=== PATIENT | male | born 1955 | race Caucasian/White ===

== ENCOUNTER 2018-11-27 06:14 | Inpatient (IN) ==
--- NOTE | 2018-11-17 09:32 | Anesthesiology Consultation ---
Date of Service November 17, 2018 Assessment & Plan (1) Encounter for pre-operative examination: Plan: CHECK POTASSIUM STAT AM DOS. Chart Review Chart Review: Acceptable Risk for Surgery and Patient seen in Pre Admission Testing Teaching & Discussion Instructed NPO after midnight before surgery, except medications with 15 cc of water. Medication instructions provided according to the PAT guidelines. History Surgery Operation Date: 11/27/18 10:55 Proposed Procedures p Left Total Hip Arthroplasty - Suresh Leung MD Height/Weight Height: 5 ft 8 in Weight: 61.7 kg Allergies Allergy/AdvReac Type Severity Reaction Status Date / Time No Known Allergies Allergy Verified 11/11/18 15:32 Medications Home Medications Medication Instructions Recorded Confirmed Last Taken ibuprofen [Advil] 400 mg PO QID PRN 11/11/18 11/11/18 Unknown Past Medical History Medical History No known health problems Osteoarthritis Past Surgical History Surgical History No history of previous surgery Past Anesthesia History No Family Hx of Anesthesia Complications ANESTHESIA NAIVE Motion Sickness Screening History of Motion Sickness: No Social History Smoking Status: Current every day smoker tobacco type: cigarettes Smoking cigarettes per day: 1 PPD X 42 YRS AGO Do You Dip or Chew Tobacco: No Hx Alcohol Use: No Hx Substance Use: No Exercise / Class Metabolic Activity II 4-5 Yardwork/Stairs/Walk up hill (no CP or SOB with stairs) Review of Systems Pt denies any recent chest pain, shortness of breath, palpitations, cough, fever or URI. Physical Exam Vital Signs BP: 163/103 (pt is visibly anxious, has documented BP of 138/88 at PCP on 11/05/18 ) P: 79bpm SPO2: 98% RA T: 98.0 R: 16 ENMT Mouth: + dentures (full upper); no chipped teeth and no loose teeth Thyromental Distance: < 3.5 Finger Breadths (3) Mallampati Class: II Neck normal visual inspection and + facial hair (mustache); neck extension not limited Respiratory normal respiratory effort Auscultation: lungs clear to auscultation bilaterally Cardiovascular Rate/Rhythm: regular rate and regular rhythm Heart Sounds: no murmur Vessels: no carotid bruit Extremities: no edema Testing Electrocardiogram Date: 11/17/18 Findings: + NSR @ (65) Possible LAE. Nonspecific ST abnormality. Chest X-Ray Date: 11/17/18 Findings: + NAD Laboratory Results 11/17/18 09:59 11/17/18 09:59 Blood Type A Positive 11/17/18 09:59 Antibody Screen NEGATIVE 11/17/18 09:59 PT 10.7 Seconds (9.0-12.0) 11/17/18 09:59 INR 1.1 (0.9-1.1) 11/17/18 09:59 APTT 24.9 Seconds (21.0-31.0) 11/17/18 09:59 Hemoglobin A1c 6.1 % (4.5-5.6) H 11/17/18 09:59 Urine Color Yellow 11/17/18 09:59 Urine Appearance Clear (Clear) 11/17/18 09:59 Urine pH 7.0 (4.5-7.5) 11/17/18 09:59 Ur Specific Jeffers 1.012 (1.000-1.030) 11/17/18 09:59 Urine Protein Negative (Negative) 11/17/18 09:59 Urine Glucose (UA) Negative (Negative) 11/17/18 09:59 Urine Ketones Negative (Negative) 11/17/18 09:59 Urine Nitrite Negative (Negative) 11/17/18 09:59 Ur Leukocyte Esterase Negative (Negative) 11/17/18 09:59 11/17/18 09:59 Urine Culture - Preliminary Urine,Clean Catch No growth - Less than 1,000 colonies/mL, Final report to follow.
--- NOTE | 2018-11-17 09:46 | PAT Medication Instructions ---
Medication Instructions Date of Service November 17, 2018 Home Medications ibuprofen [Advil] 400 mg PO QID PRN ASK your surgeon for instructions ibuprofen [Advil] 400 mg PO QID PRN Other Notes If you have any questions please call us at [phone] or [phone] or [phone] or [phone]
--- NOTE | 2018-11-17 10:25 | XRay Report ---
XR chest Pre-admission PA/Lat CLINICAL HISTORY: Preoperative chest COMPARISON STUDY: No previous studies for comparison. FINDINGS: The cardiac and mediastinal contours are normal. There is no evidence of focal pulmonary co nsolidation. There is no evidence of failure. No pleural effusions are visualized.[ IMPRESSION: No active disease in the chest. Electronically signed by: Joel Jones M.D. 11/17/2018 10:23 AM
[2018-11-17 10:32] LABS: Basophils # (auto) 0.04 K/uL (0-0.2); Basophils % (auto) 0.7 %; Eosinophils # (auto) 0.16 K/uL (0-0.5); Eosinophils % (auto) 2.7 %; Hematocrit (blood only) 48.6 % (42-52); Hemoglobin 16.7 g/dL (14.0-18.0); Immature Granulocytes # (auto) 0.01 K/uL (0.00-0.02); Immature Granulocytes % (auto) 0.2 %; Lymphocytes # (auto) 1.66 K/uL (1.2-3.4); Lymphocytes % (auto) 27.8 %; Mean Corpuscular Hgb Conc 34.4 g/dL (32-36); Mean Corpuscular Volume 96.8 fL (80-100); Mean Platelet Volume 10.1 fL (7.4-10.4); Monocytes # (auto) 0.53 K/uL (0.11-0.59); Monocytes % (auto) 8.9 %; Neutrophils # (auto) 3.57 K/uL (1.4-6.5); Neutrophils % (auto) 59.7 %; Platelet Count 234 K/uL (130-400); RDW Coefficient of Variation 12.6 % (11.5-14.5); RDW Standard Deviation 44.3 fL (36.4-46.3); Red Blood Count 5.02 M/uL (4.7-6.1); White Blood Count 5.97 K/uL (4.8-10.8)
[2018-11-17 10:34] LABS: Appearance Urine Clear (Clear); Bilirubin Urine Negative (Negative); Color Urine Yellow; Glucose Urine UA Negative (Negative); Ketones Urine Negative (Negative); Leukocyte Esterase Urine Negative (Negative); Nitrite Urine Negative (Negative); Protein Urine Negative (Negative); Specific Gravity Urine 1.012 (1.000-1.030); Urobilinogen Urine Negative (Negative)
[2018-11-17 10:40] LABS: Albumin Level 3.9 gm/dl (3.4-5.0); BUN Creatinine Ratio 14.9 (10-20); Calcium 9.6 mg/dl (8.5-10.1); Creatinine Clr Calc Pharmacy 75.1 ml/min; Est GFR (African American) 106.2; Est GFR (Non-African American) 91.6; INR 1.1 (0.9-1.1); Partial Thromboplastin Time 24.9 Seconds (21.0-31.0); Potassium 5.3 mmol/L (3.5-5.1); Prothrombin Time 10.7 Seconds (9.0-12.0)
[2018-11-17 11:42] LABS: Estimated Average Glucose 128 mg/dl
--- NOTE | 2018-11-26 10:44 | History and Physical Report ---
DATE OF ADMISSION: 11/27/2018 CHIEF COMPLAINT: Left hip pain. HISTORY OF PRESENT ILLNESS: Patient is a 63-year-old male with known severe osteoarthritis about his left hip. He initially thought he was having some back trouble, had his back checked which was essentially benign. He is referred here for evaluation of his left hip. X-rays revealed end-stage osteoarthritis. He takes naproxen daily for pain. He continues to have pain and disability with activities of daily living. He has pain with prolonged weightbearing and standing activities. He has difficulty with any kneeling, bending, or squatting activities. Due to ongoing pain and disability, he now desires to proceed with left total hip arthroplasty. PAST MEDICAL HISTORY: Denies. PAST SURGICAL HISTORY: None. MEDICATIONS: Amitriptyline 25 mg p.o. at bedtime, naproxen 500 mg twice daily. ALLERGIES: No known drug allergies. SOCIAL HISTORY: Noncontributory. REVIEW OF SYSTEMS: Noncontributory. PHYSICAL EXAMINATION: GENERAL: Well-nourished and well-developed male who appears his stated age. HEENT: Normocephalic and atraumatic. Extraocular movements intact. Oropharynx pink and moist. NECK: Supple, without adenopathy. LUNGS: Clear to auscultation bilaterally. HEART: Regular rate and rhythm. ABDOMEN: Soft, nontender, nondistended. EXTREMITIES: The upper extremities are within normal limits. Left hip demonstrates limited range of motion. There is limitation of active and passive internal/external rotation with pain at end range. IMAGING: X-rays were reviewed. He has severe osteoarthritis about the left hip with complete loss of the joint space. There is deformation of the femoral head. There is osteophyte formation about the femoral head and acetabulum. ASSESSMENT: Left hip degenerative joint disease. PLAN: Risks versus benefits were discussed, consent was obtained. Patient's primary care physician is Jannette Winston. Will proceed with left total hip arthroplasty as indicated.
[~2018-11-27 06:14] MED LIST: ACETAMINOPHEN 500 MG TAB PO SCH; CEFAZOLIN 1000MG 1,000 MG/7.5 ML SYR IV SCH; CeleBREX 200 MG CAP PO SCH; FAMOTIDINE 20 MG TAB PO SCH; GABAPENTIN 300 MG x 2 PO SCH; METOCLOPRAMIDE HCL 10 MG TABLET PO SCH; ROPIVACAINE 0.5% HCL/PF 150 MG, BUPIVACAINE 0.5% MPF 30 ML, EPINEPHrine 30MG/30ML (OR U... INFIL SCH; TRANEXAMIC ACID 1,000 MG **IV Pre-op IV SCH; dexAMETHasone 4 MG TAB PO SCH
[2018-11-27] MEDS ORDERED: TRANEXAMIC ACID 1,000 MG **IV Intra-op IV SCH (06:30)
[2018-11-27] MEDS ORDERED: BUPIVACAINE 0.5 % 5 MG/1 ML PF 10ML VIAL ONE (06:30)
[2018-11-27] MEDS: LR 500ML BOLUS, THEN 15ML/HR IV SCH (06:52)
--- NOTE | 2018-11-27 07:11 | History & Physical Bridge Note ---
Date of Service November 27, 2018 History & Physical Bridge Note I have examined the patient, reviewed the History & Physical and in the interval since the performance of the History & Physical I have noted the following changes of clinical significance: no changes noted
[2018-11-27] MEDS ORDERED: fentaNYL citrate 100 MCG/2 ML VIAL ONE (07:42)
[2018-11-27] MEDS ORDERED: MIDAZOLAM HCL 1 MG/ML 2ML VIAL ONE ×2 (07:42→08:41)
[2018-11-27] MEDS ORDERED: ATROPINE SULFATE 0.1 MG/ML 10ML SYR IV PRN (08:16)
[2018-11-27] MEDS ORDERED: fentaNYL citrate 100 MCG/2 ML VIAL IV PRN (08:16)
[2018-11-27] MEDS ORDERED: ONDANSETRON INJ 2 MG/ML 2 ML VIAL IV PRN ×2 (08:16→11:44)
[2018-11-27] MEDS ORDERED: ePHEDrine sulfate 50 MG/ML AMP IV PRN (08:16)
[2018-11-27] MEDS ORDERED: ORTHO JOINT ANESTHETIC ONE (08:37)
[2018-11-27] MEDS ORDERED: BACITRACIN INJ 50,000 UNIT VIAL ONE (08:37)
[2018-11-27] MEDS ORDERED: POVIDONE-IODINE OP SOLN 30 ML BTL ONE (08:37)
[2018-11-27] MEDS ORDERED: ePHEDrine sulfate 50 MG/ML SYR ONE (09:46)
[2018-11-27] MEDS ORDERED: PROPOFOL IV EMULSION 10 MG/ML 20 ML VIAL IV ONE (09:46)
[2018-11-27] MEDS ORDERED: LIDOCAINE HCL 2% 2 ML VIAL/AMP(20MG/ML) INFIL ONE (09:46)
--- NOTE | 2018-11-27 10:11 | Operative Report ---
Post Operative Report Pre & Post Diagnosis Operation Date: 11/27/18 09:20 <No data on this case meets the specified criteria> Procedure Operation Date: 11/27/18 09:20 <No data on this case meets the specified criteria> Surgeon Suresh Leung MD Carpet Inspector Abhinav Estimated Blood Loss 100 Findings Consistent with Post-Op Diagnosis Specimens Femoral head Complications none Disposition Accompanied Patient To Recovery: No Disposition: Recovery Room Indications Hip pain Description of Procedure Patient was placed in the right lateral decubitus position left hip was prepped and draped in usual sterile manner. A Jose R Langenbeck incision was made subcutaneous tissue sharply dissected lateral closed with hemostasis. Fascia was incised throughout the length wound of the short external rotators were divided from the posterior aspect of the femur using electrocautery. The T capsulotomy incision was made and the hip was dislocated. Large inferior and posterior osteophyte was removed. Fibrous labrum and capsule was removed. Sequential reamings were taken up to a size 58 which gave good exposure to subchondral bone. The 58 mm shell was impacted in position and held using single cancellous bone screw. Next a box osteotome used to gain access femoral canal. The tapered canal finder was utilized and lateralization reamer was utilized and sequential aspirins were taken up to a size 6 which gave good fit and fill. Trial reduction carried out and a -5 femoral head was chosen size to be used. It was extremely stable. Final stem was impacted in position the hip was thoroughly irrigated periarticular joint injection was provided Betadine soap was utilized fascia was closed with #1 Vicryl subcutaneous tissue was closed using 0 Dexon and the skin was closed with is applied. Sterile dressing of Adaptic 4 x 4's ABDs and foam tape was applied. The patient tolerated procedure well. I attest to the content of the Intraoperative Record and any orders documented therein. Any exceptions are noted below.
--- NOTE | 2018-11-27 10:54 | XRay Report ---
XR hip 1V LT w pelvis CLINICAL HISTORY: post-op DIANA COMPARISON: None. DISCUSSION: There are postsurgical changes of a total left hip arthroplasty. There is no dislocation. There are overlying surgical drains. There is air within soft tissues consistent with recent surgery . IMPRESSION: Postsurgical changes of a total left hip arthroplasty. Electronically signed by: Joel Jones M.D. 11/27/2018 10:52 AM
--- NOTE | 2018-11-27 11:09 | Anesthesiology Progress Note ---
Date of Service November 27, 2018 Anesthesia Post Procedure Vital Signs Vital Signs: Temp Pulse Pulse Resp BP Pulse Ox 11/27/18 11:00 66 14 110/69 100 11/27/18 10:50 77 14 109/70 96 11/27/18 10:40 73 14 108/67 98 11/27/18 10:30 36.5 C 70 14 100/65 100 11/27/18 06:33 36.8 C 82 20 163/97 H 96 Pain Intensity Left Hip: Pain Intensity: 0 Notes Mental Status: alert / awake / arousable and participated in evaluation Nausea / Vomiting: adequately controlled Pain: adequately controlled Airway Patency, RR, SpO2: stable & adequate BP & HR: stable & adequate Hydration State: stable & adequate Neuraxial Anesthesia: was administered and sensory block is resolving Anesthetic Complications: no major complications apparent
[2018-11-27] MEDS ORDERED: ALUMINUM/MAGNESIUM SUSP 30 ML UDC PO PRN (11:44)
[2018-11-27] MEDS ORDERED: BISACODYL 10 MG SUPP PR PRN (11:44)
[2018-11-27] MEDS ORDERED: MAGNESIUM HYDROXIDE SUSP 30 ML UDC PO PRN (11:44)
[2018-11-27] MEDS ORDERED: HYDROmorphone INJ 1 MG/ML SYRINGE IV PRN (11:44)
[2018-11-27] MEDS ORDERED: METOCLOPRAMIDE HCL INJ 5 MG/ML 2 ML VIAL IV PRN (11:44)
[2018-11-27] MEDS ORDERED: NALOXONE HCL 0.4 MG/1 ML VIAL/CARP IV PRN (11:44)
[2018-11-27] MEDS ORDERED: TAMSULOSIN HCL 0.4 MG CAP PO PRN (11:44)
[2018-11-27] MEDS ORDERED: OXYCODONE HCL IR 5 MG TAB (IMMEDIATE RELEASE) PO PRN (11:44)
[2018-11-27] MEDS: SODIUM CHLORIDE 0.9% 1000ML 1,000 ML IV SCH ×2 (12:08→22:08)
[2018-11-27] MEDS: ACETAMINOPHEN 500 MG TAB PO SCH ×2 (13:57→22:05)
[2018-11-27] MEDS: KETOROLAC 30 MG/ML VIAL IV SCH ×2 (13:57→20:33)
[2018-11-27] MEDS: CEFAZOLIN 1000MG 1,000 MG/7.5 ML SYR IV SCH (15:29)
[2018-11-27] MEDS: ASCORBIC ACID 500 MG TAB PO SCH (16:52)
[2018-11-27] MEDS: FERROUS GLUCONATE 324 MG TAB PO SCH (16:52)
[2018-11-27] MEDS: ASPIRIN 81 MG ECTAB PO SCH (20:33)
[2018-11-27] MEDS: DOCUSATE SODIUM 100 MG CAP PO SCH (20:33)
[2018-11-27] MEDS ORDERED: SENNA 8.6 MG TAB PO SCH (21:00)
[2018-11-28] MEDS: CEFAZOLIN 1000MG 1,000 MG/7.5 ML SYR IV SCH (00:18)
[2018-11-28] MEDS: LR 500ML BOLUS, THEN 15ML/HR IV SCH ×2 (01:53→01:54)
[2018-11-28] MEDS: KETOROLAC 30 MG/ML VIAL IV SCH ×2 (01:59→08:27)
[2018-11-28] MEDS: ACETAMINOPHEN 500 MG TAB PO SCH ×2 (05:59→13:45)
[2018-11-28 06:26] LABS: Basophils # (auto) 0.02 K/uL (0-0.2); Basophils % (auto) 0.2 %; Eosinophils # (auto) 0.08 K/uL (0-0.5); Eosinophils % (auto) 0.7 %; Hematocrit (blood only) 35.8 % (42-52); Immature Granulocytes # (auto) 0.03 K/uL (0.00-0.02); Immature Granulocytes % (auto) 0.3 %; Lymphocytes # (auto) 1.94 K/uL (1.2-3.4); Lymphocytes % (auto) 17.2 %; Mean Corpuscular Hgb Conc 33.5 g/dL (32-36); Mean Corpuscular Volume 96.2 fL (80-100); Monocytes % (auto) 8.9 %; Neutrophils % (auto) 72.7 %; Platelet Count 195 K/uL (130-400); RDW Coefficient of Variation 12.7 % (11.5-14.5); RDW Standard Deviation 44.4 fL (36.4-46.3); Red Blood Count 3.72 M/uL (4.7-6.1); White Blood Count 11.27 K/uL (4.8-10.8)
[2018-11-28] MEDS ORDERED: Nursing to Pharmacy Communication ONE (06:36)
[2018-11-28 07:00] LABS: BUN Creatinine Ratio 17.7 (10-20); Calcium 8.4 mg/dl (8.5-10.1); Creatinine Clr Calc Pharmacy 78.6 ml/min; Est GFR (African American) 108.8; Est GFR (Non-African American) 93.8; Potassium 3.9 mmol/L (3.5-5.1)
[2018-11-28] MEDS ORDERED: dexAMETHasone 10 MG in SYRINGE 0 ML IV SCH (08:00)
--- NOTE | 2018-11-28 08:20 | Anesthesiology Progress Note ---
Date of Service November 28, 2018 Anesthesia Post Procedure Vital Signs Vital Signs: Temp Pulse Pulse Resp BP Pulse Ox 11/28/18 07:00 36.7 C 67 16 127/75 97 11/28/18 03:20 36.6 C 69 16 107/68 95 11/27/18 23:49 36.7 C 68 16 104/63 96 11/27/18 20:00 36.7 C 63 17 130/75 97 11/27/18 15:44 36.9 C 76 17 137/80 99 11/27/18 14:20 81 18 130/79 99 11/27/18 13:22 78 16 127/77 100 11/27/18 12:25 75 18 126/79 100 11/27/18 11:56 84 18 130/73 100 11/27/18 11:25 36.5 C 83 16 116/77 96 11/27/18 11:10 36.6 C 83 14 113/69 100 11/27/18 11:00 66 14 110/69 100 11/27/18 10:50 77 14 109/70 96 11/27/18 10:40 73 14 108/67 98 11/27/18 10:30 36.5 C 70 14 100/65 100 Pain Intensity Left Hip: Pain Intensity: 1 Notes Mental Status: alert / awake / arousable and participated in evaluation Patient Amnestic to Procedure: Yes Nausea / Vomiting: adequately controlled Pain: adequately controlled Airway Patency, RR, SpO2: stable & adequate BP & HR: stable & adequate Hydration State: stable & adequate Neuraxial Anesthesia: was administered and sensory block resolved Anesthetic Complications: no major complications apparent
--- NOTE | 2018-11-28 08:30 | Orthopedic Progress Note ---
Date of Service November 28, 2018 Assessment & Plan (1) Status post total replacement of left hip: POD 1 PT/OT Pain management as is. DVT prophylaxis with SCD, ROSAMARIA, ASA. Planning for HH services on dc Subjective POD 1 s/p left DIANA. Up in chair at bedside this AM. Awake, alert. No complaints. Comfortable. Denies SOB, CP, LH. Physical Exam 2 Vital Signs (Past 24 Hours): Last Vital Signs Temp 36.7 C 11/28/18 07:00 Pulse 67 11/28/18 07:00 Resp 16 11/28/18 07:00 BP 127/75 11/28/18 07:00 Pulse Ox 97 11/28/18 07:00 Physical Exam: Dressings C/D/I. NV intact. Calves soft, NT. Toes mobile. Hip appears located.
[2018-11-28] MEDS: DOCUSATE SODIUM 100 MG CAP PO SCH (08:35)
[2018-11-28] MEDS: FERROUS GLUCONATE 324 MG TAB PO SCH (08:35)
[2018-11-28] MEDS: ASCORBIC ACID 500 MG TAB PO SCH (08:35)
[2018-11-28] MEDS: ASPIRIN 81 MG ECTAB PO SCH (08:36)
[2018-11-28] MEDS ORDERED: MULTIVITAMIN TAB PO SCH (09:00)
--- NOTE | 2018-12-03 12:54 | Discharge Summary ---
CHIEF COMPLAINT: Left hip pain. Please see complete history and physical examination. HOSPITAL COURSE: The patient underwent left total hip arthroplasty without complication. He tolerated the procedure well and was discharged to recovery room in stable condition. His postop course was relatively uneventful. His postoperative pain was reasonably well controlled with a combination of spinal anesthesia, intraoperative joint injection, IV, and oral pain medications. He was started on aspirin for DVT prophylaxis. He also utilized ROSAMARIA stockings and SCDs for additional prophylaxis. His H and H was stable and did not require transfusion. Surgical drain was discontinued on postoperative day 1, surgical dressing was changed and will remain in place for approximately 7 days postoperatively. He tolerated postop physical therapy reasonably well. He was ambulating and transferring appropriately. He was observing all total hip precautions. He was discharged home on postoperative day 1. He will continue his physical therapy at home. He will continue his aspirin for DVT prophylaxis and follow up in our office in approximately 10-14 days for his initial postop evaluation.
== END 2018-11-28 16:24 | disposition home health service (06) | DRG 470 ==
LOC: ASU 06:14 → 3E 10:35
DX: M16.12 Unilateral primary osteoarthritis, left hip; F17.210 Nicotine dependence, cigarettes, uncomplicated